=== PATIENT | male | born 1975 | race African-American/Black ===

== ENCOUNTER → 2017-07-21 | Outpatient (CLI) | payer OTHER ==
[~2017-07-21] MED LIST: ATOR-24 PO; CYCL5TAB PO; FRS/40 PO; INSHNI SQ; INSHRIE; LEVO1TAB34 PO; LOSA50TA6 PO; MINO100C22 PO; POTATAB2 PO; SULF800T23 PO
== END | disposition home or self-care (01) ==
LOC: C.RDSM 12:00
PROVIDERS: ATTEND Orthopaedic Surgery Sports Medicine
DX: T81.89XA Other complications of procedures, not elsewhere classified, initial encounter (principal); Y84.9 Medical procedure, unspecified as the cause of abnormal reaction of the patient, or of later complication, without mention of misadventure at the time of the procedure